=== PATIENT | male | born 1990 | race Caucasian/White ===

== ENCOUNTER 2022-06-05 09:24 | Emergency (ER) | payer OTHER, MEDICAID, SELFPAY ==
[2022-06-05 09:27] VITALS: BP 127/87; PULSE 83; RESP 17; TEMP 35.7; O2SAT 98; BMI 37.7
--- NOTE | 2022-06-05 09:42 | EX.ED.UPPERE ---
HPI History of Present Illness HPI Narrative: Patient presents with injury to his right index finger that occurred yesterday. Patient states he was seen at a different facility yesterday. Patient states that he had x-rays done at that time which were negative. Patient states that they attempted to trephinate the nail yesterday. Patient states the pain is worse today. Patient describes the pain as throbbing, aching, and sharp and stabbing at times. Patient states it is worse whenever he reaches for anything or it is in a dependent position. Patient states nothing seems to help. Patient admits to some mild numbness in the tip of his right index finger. Chief Complaint: Upper Extremity Injury Informant: patient Occured/Mechanism Mechanism/Context: Yes blunt trauma and Yes work related Onset/Context/Timing Onset: Yesterday Context: Sudden Onset Timing: Continuous Quality of Pain: Sharp, Aching, Stabbing and Throbbing Location: Right index finger Worsened by: Reaching, dependent positions Relieved by: Nothing Associated Symptoms Associated Symptoms: Positive for Parasthesia; Negative for Weakness or Loss of Funtion [facility] Medical History (Updated 06/05/22 @ 09:[address] Jesus Roach DO) History of prediabetes Hypertension Sleep apnea Qktns-Igbmmwlin-Azrhc syndrome Allergy/AdvReac Type Severity Reaction Status Date / Time bee venom protein (honey bee) Allergy Anaphylaxis Verified 06/05/22 09:25 lactose Allergy Upset Verified 06/05/22 09:25 Stomach Surgical History (Updated 06/05/22 @ 09:[address] Jesus Roach DO) History of cardiac radiofrequency ablation History of repair of anterior cruciate ligament of right knee Hx of arthroscopic knee surgery Hx of tonsillectomy Social History Smoking Status: Unknown if ever smoked ROS ROS ED Constitutional Constitutional ED: Denies chills or fever(s) Eyes Eyes: Denies blurry vision or change in vision ENT ENT ED: Denies rhinorrhea or sore throat Cardiovascular Cardiovascular: Denies chest pain or palpitations Respiratory/Chest Respiratory/Chest: Denies cough or dyspnea Gastrointestinal Gastrointestinal: Reports nausea; Denies vomiting Genitourinary Genitourinary ED: Denies dysuria or hematuria Musculoskeletal Musculoskeletal: Denies back pain or neck pain Integumentary Denies abscess or rash Neurologic Neurologic: Denies headache(s) or weakness Allergic/Immunologic Allergic/Immunologic ED: Denies mouth swelling or urticaria EXAM Physical Exam Const Vital Signs: 06/05/22 09:27 Temperature 96.2 F L Temperature Source Temporal Pulse Rate 83 Respiratory Rate 17 Blood Pressure 127/87 H Blood Pressure Mean 100 Pulse Ox 98 Oxygen Delivery Method Room Air Positive well nourished and well developed General Appearance ED: well developed and NAD HEENT Reports moist mucous membranes Neck full ROM and supple Resp normal respiratory effort and clear to auscultation bilaterally Cardio regular rate and regular rhythm Extremity Extremity Narrative: There is some mild tenderness of the distal phalanx of the right index finger. There is a subungual hematoma over the proximal one third of the nailbed. There is no bony crepitance or step-off. Strength is 5/5 in flexion extension of the MP, PIP, and DIP joints. Sensation was intact to light touch in all digits. Capillary refill was less than 2 seconds in all digits. Radial pulses are equal bilaterally. Neuro oriented x3, CN's II-XII intact bilaterally, moves all extremities, no focal motor deficits and no sensory deficits noted Sensorium / Orientation: alert Motor Exam: strength 5/5 throughout MDM MDM MDM Narrative Medical decision making narrative: Patient requested that the nail be trephinated again. The area was cleaned with alcohol swabs. An 11 blade scalpel was used to make 3 small holes in the proximal nail plate. There is good drainage of blood. Patient tolerated the procedure well. Bacitracin dressing was applied. Patient was instructed to follow-up with his primary care physician or the [facility] in 5 to 7 days. Patient understood and was agreeable with the plan. All questions were answered. Discharge Plan Triage Chief Complaint: Upper Extremity Injury ED Provider: Jesus Roach Dx/Rx/DC Orders Clinical Impression: Contusion of right index finger, Subungual hematoma Instructions: ED Finger Contusion Primary Care Provider: Kobe Lau Referrals: Kobe Lau MD [Primary Care Provider] - 5-7 Days [facility] [NON-STAFF] - 5-7 Days Disposition Disposition: Home, Self Care
--- NOTE | 2022-06-05 09:49 | ED.RN ---
PT. STATES THEY WERE INJURED AT [facility] WHILE WORKING YESTERDAY. PT. STARTED [facility]OI AT THAT TIME YESTERDAY, WHEN SEEN FOR INJURY AT [place]. PT. WAS HERE, AT [facility], WORKING AND CAME TO ED FOR SAME INJURY AND STATED THAT THEY JUST WANTED IT CHECKED AGAIN DUE TO PAIN. THIS NURSE ASKED IF THEY WERE INSTRUCTED TO FOLLOW UP WITH ANY FURTHER ISSUES WITH INJURY TO BE SEEN AT [facility]. PT. SAD NO, THEY DID NT TELL HIM THAT. 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 PT. WAS NOT INJURED TODAY, HERE AT [facility].
== END 2022-06-05 10:12 | disposition home or self-care (01) ==
LOC: ED 09:59
PROVIDERS: Emergency Provider Emergency Medicine; PCP Internal Medicine; Visit Provider Emergency Medicine
DX: S60.021A Contusion of right index finger without damage to nail, initial encounter (principal); G47.30 Sleep apnea, unspecified; X58.XXXA Exposure to other specified factors, initial encounter
CPT/HCPCS: 99282

== ENCOUNTER → 2022-07-10 | Outpatient (CLI) | payer MEDICARE, OTHER, SELFPAY ==
--- NOTE | 2022-07-10 07:03 | RAD_ITS ---
EXAM: XR CERVICAL SPINE, 2 OR 3 VIEWS CLINICAL INDICATION: Chronic neck and shoulder pain TECHNIQUE: Frontal and lateral views of the cervical spine. This report was created using [employer] report generation technology. COMPARISON: None. FINDINGS: VERTEBRAE: Loss of the normal cervical lordosis which may be due to muscle spasm or head positioning. Preserved vertebral body height. No acute fracture. No spondylolisthesis. No significant facet arthropathy. DISC SPACES: Normal. Disc spaces are maintained. SOFT TISSUES: Normal. No prevertebral soft tissue widening. LUNG APICES: Clear. RAD/Cerv Spine 2 or 3 Views IMPRESSION: No acute bone or joint abnormality. Electronically Signed: Cedric Agudelo MD at 9:16 EDT ,
--- NOTE | 2022-07-10 07:03 | RAD_ITS ---
EXAM: XR RIGHT SHOULDER COMPLETE, 2 OR MORE VIEWS CLINICAL INDICATION: Right Shoulder Pain TECHNIQUE: Two or more views of the right shoulder. This report was created using [employer] report generation technology. COMPARISON: None. FINDINGS: BONES/JOINTS: No acute abnormality. SOFT TISSUES: Normal. No soft tissue swelling or gas. No radiopaque foreign body. RAD/Shoulder min 2 Views IMPRESSION: Intact right shoulder. Electronically Signed: Cedric Agudelo MD at 9:16 EDT ,
[2022-07-10 07:42] LABS: Hemoglobin A1c 5.9 % (3.8-5.6)
== END | disposition home or self-care (01) ==
PROVIDERS: PCP Internal Medicine; Referring Provider Internal Medicine; Visit Provider Internal Medicine
DX: R73.03 Prediabetes (principal); M25.511 Pain in right shoulder; M54.2 Cervicalgia; G89.29 Other chronic pain
CPT/HCPCS: 36415; 72040; 73030; 83036

== ENCOUNTER → 2022-09-22 | Outpatient (CLI) | payer MEDICARE, MEDICAID, SELFPAY ==
--- NOTE | 2022-09-22 08:20 | RAD_ITS ---
STUDY: X-RAY - ESOPHAGUS (BARIUM SWALLOW) WITH FLUOROSCOPY REASON FOR EXAM: Male, 32 years old. DYSPHAGIA TECHNIQUE: 19 view(s) of the esophagus were obtained following swallowing of barium. FLUOROSCOPY TIME (if supplied): (51 seconds) minutes/seconds COMPARISON: None. FINDINGS: There is no demonstrated esophageal foreign body. There is no demonstrated stricture or mucosal abnormality. Normal gastroesophageal junction, without a demonstrated hiatal hernia. The patient ingested a 12 mm tablet of barium. The tablet is trapped in the proximal esophagus at the level of the aortic arch. Normal visualized aortic arch and descending thoracic aorta. Normal visualized pulmonary parenchyma. Normal visualized osseous structures of the thorax. RAD/Esophagus Dual Contrast IMPRESSION: The ingested 12 mm tablet of barium is trapped at the level of the aortic arch Electronically Signed: Earle Samson MD at 9:50 EST ,
== END | disposition home or self-care (01) ==
LOC: RAD 08:11
PROVIDERS: PCP Internal Medicine; Referring Provider Otolaryngology; Visit Provider Otolaryngology
DX: R13.10 Dysphagia, unspecified (principal)
CPT/HCPCS: 74221